=== PATIENT | male | born 1980 | race Caucasian/White ===

== ENCOUNTER 2024-03-14 19:51 | Emergency (ER) | payer BC ==
[2024-03-14] MEDS: Ibuprofen 400 MG Tab PO ONE (20:47)
[2024-03-14] MEDS: Cephalexin 500 MG Cap PO ONE (20:49)
== END 2024-03-14 20:54 | disposition home or self-care (01) ==
LOC: MW.ED 19:51
DX: L03.115 Cellulitis of right lower limb (principal); Z75.8 Other problems related to medical facilities and other health care
CPT/HCPCS: 99283; A9270

== ENCOUNTER 2024-04-08 20:22 | Emergency (ER) | payer BC | END 2024-04-08 21:25 | disposition home or self-care (01) | LOC: MW.ED 20:22 | DX: M25.461 Effusion, right knee (principal); Z75.8 Other problems related to medical facilities and other health care | CPT/HCPCS: 99283 ==